=== PATIENT | male | born 1950 | race Caucasian/White ===

== ENCOUNTER → 2018-01-22 | Day surgery (SDC) | payer MEDICARE, OTHER ==
[~2018-01-22] MED LIST: Lactated Ringers 1,000 ML IV SCH; Propofol 200 MG/20 ML SDV IV ONE
[2018-01-22 09:48] VITALS: BP 132/82
--- NOTE | 2018-01-25 09:12 | OR ---
DATE OF OPERATION: 01/22/2018 PREOPERATIVE DIAGNOSIS: SCREENING COLONOSCOPY. POSTOPERATIVE DIAGNOSIS: SCREENING COLONOSCOPY. SURGEON: Varun Schroeder MD PROCEDURE: FULL-LENGTH COLONOSCOPY. ANESTHESIA: TRAUMA PROGRAM MANAGER. COMPLICATIONS: None. SPECIMEN: None. FINDINGS: Normal full-length colonoscopy. RECOMMENDATIONS: Routine colonoscopy every 10 years. INDICATIONS: Mr. Boone is a very pleasant 67-year-old, well known to me, who came in for routine Medicare physical. He is due for a screening colonoscopy. DESCRIPTION OF PROCEDURE: The patient was prepped and draped, placed in the left lateral decubitus position. A lubricated Olympus colonoscope was inserted and easily advanced to the cecum. Direct visualization of the ileocecal valve and appendiceal orifice was accomplished. The bowel prep was fine. Upon withdrawal of the scope, cecum, ascending, and transverse colon were completely benign. Throughout the entire left colon, I could find no signs of any polyps, mass, ulceration, or bleeding sites. No vascular abnormalities or signs of colitis. The rectal vault was unremarkable. Retroflexion of scope in the rectum was benign. Air was suctioned. Scope was removed without complication. The patient is stable in recovery room. BRADFORD/MANA /[id number]
== END ==
LOC: CC.SDS 07:50
PROVIDERS: ATTEND Family Medicine
DX: Z12.11 Encounter for screening for malignant neoplasm of colon (principal); I10 Essential (primary) hypertension; M10.9 Gout, unspecified; E11.9 Type 2 diabetes mellitus without complications; E78.5 Hyperlipidemia, unspecified; N40.0 Benign prostatic hyperplasia without lower urinary tract symptoms; Z79.899 Other long term (current) drug therapy
CPT/HCPCS: 82962; J2704; J7120

== ENCOUNTER → 2019-03-22 | Day surgery (SDC) | payer MEDICARE, OTHER ==
[~2019-03-22] MED LIST changes: -Lactated Ringers 1,000 ML IV SCH; +Lidocaine 1% 20 ML MDV ONE; -Propofol 200 MG/20 ML SDV IV ONE
[2019-03-22 08:56] VITALS: BP 155/62; PULSE 60
== END ==
LOC: CC.SDS 07:53
PROVIDERS: ATTEND Family Medicine
DX: I83.812 Varicose veins of left lower extremity with pain (principal)
CPT/HCPCS: 36475; A4216

== ENCOUNTER → 2019-03-29 | Day surgery (SDC) | payer MEDICARE, OTHER ==
[2019-03-29 09:45] VITALS: BP 155/68; PULSE 65
== END ==
LOC: CC.SDS 08:07
PROVIDERS: ATTEND Family Medicine
DX: I83.11 Varicose veins of right lower extremity with inflammation (principal); I83.811 Varicose veins of right lower extremity with pain

== ENCOUNTER 2019-12-01 11:30 | Inpatient (IN) | payer MEDICARE, OTHER ==
[2019-12-01] MEDS ORDERED: NS + KCl 20mEq/L 1,000 ML IV ONE (12:00)
[2019-12-01 12:07] LABS: CHLORIDE,CL 103 mEq/L (98-106); SODIUM,NA 138 mEq/L (136-145)
[2019-12-01] MEDS ORDERED: Ondansetron 4 MG Tab.DIS PO PRN (12:57)
[2019-12-01] MEDS ORDERED: Ondansetron 4 MG/2 ML SDV IV PRN (12:57)
[2019-12-01] MEDS ORDERED: Temazepam 15 MG Cap PO PRN (12:57)
[2019-12-01] MEDS ORDERED: Acetaminophen 325 MG Tab PO PRN (12:57)
[2019-12-01] MEDS ORDERED: Sodium Chloride 0.9% 10 ML Syringe FLUSH PRN (12:57)
[2019-12-01] MEDS ORDERED: Enoxaparin 30 MG/0.3 ML Syringe SUBCUT SCH (13:00)
[2019-12-01] MEDS ORDERED: NS + KCl 20mEq/L 1,000 ML IV SCH ×2 (15:30→16:00)
[2019-12-01] MEDS: Insulin Lispro 100 Units/ML 3 ML Vial SUBCUT SCH ×2 (17:19→20:34)
[2019-12-02] MEDS: Sodium Chloride 0.9% 1,000 ML IV SCH ×3 (01:02→20:18)
[2019-12-02] MEDS: Enoxaparin 30 MG/0.3 ML Syringe SUBCUT SCH (07:31)
[2019-12-02] MEDS: Insulin Lispro 100 Units/ML 3 ML Vial SUBCUT SCH ×4 (07:35→20:21)
--- NOTE | 2019-12-02 10:26 | PN ---
DATE: 12/02/2019 S: Ben is an interesting 68-year-old, who about a month ago was started on Ozempic. He was also having an CASPER-induced cough, so we switched him off his 20 mg of lisinopril and put him on Cozaar. He did fine for about 3 weeks, when all of a sudden, he started having persistent diarrhea. About a week after this started, we saw him in the clinic, stopped his Ozempic, which we felt was the culprit for his diarrhea and crampy abdominal pains. At that time, he declined any further workup, said he felt fine other than the fact that his stools were loose. Over the next 3 or 4 days when he was not improving, routine lab showed his creatinine to be up slightly around 1.7 from a baseline of about 1.4. We ordered stool studies, and those ultimately came back negative on the date of his admission. He presented on the day of his admission just feeling like he was getting worse and more weak. He came in with a creatinine of 3.8 and was hypomagnesemic and hypokalemic. He was admitted for acute kidney injury and dehydration with multiple electrolyte abnormalities. When he presented, he was slightly hypotensive with pressures in the 90s. He has been up since then in the 110s to 140s. He has not had any temps. His pulse has been regular and in the 70s. It took about 2 L of fluid to get him started having urine output. This morning, he has been voiding fine. He denies any real concerns other than the fact that he continues to have diarrhea. O: GENERAL: His physical exam shows him to be pleasant and cooperative. NECK: Veins are flat. LUNGS: His lungs are clear. CARDIAC: Tones are regular. ABDOMEN: Obese, soft. Really has no tenderness, just feels bloated. He has good bowel sounds. EXTREMITIES: No peripheral edema seen. LABORATORY DATA: White count today is down from 14 to 8. His hemoglobin is 12.2; 15.5 on admit, likely dilutional. He has a high eosinophilia count. His potassium is up from 3.3 to 3.7; renal function has improved from 3.8 on admit to 2.5 now; and magnesium is still low at 1.6. ASSESSMENT: 1. PERSISTENT DIARRHEA WITH POOR INTAKE AND SUBSEQUENT DEHYDRATION. 2. ACUTE KIDNEY INJURY SECONDARY TO PRERENAL AZOTEMIA. 3. HYPOKALEMIA. 4. HYPOMAGNESEMIA. 5. TYPE 2 DIABETES. 6. HYPERTENSION. P: The patient did not have accurate I and O's last night. Nursing will start collecting accurate I and O's. We will continue to give low-rate IV fluids at 100 per hour today and monitor his progress. He did have a renal ultrasound yesterday which showed no gross abnormalities. No obstructive uropathy seen. Bladder was empty during his ultrasound. At this time, continue to hold his antihypertensive in the form of his Cozaar as well as his metformin and Ozempic. He is getting sliding scale insulin. We will monitor his renal functions closely in the next 24 to 48 hours. BRADFORD/MANA /[id number]
[2019-12-02] MEDS: Potassium Chloride 10 MEQ Tab.ER PO SCH (11:43)
[2019-12-02] MEDS ORDERED: Magnesium Sulfate/D5W 1 GM/100 ML BAG ONE (12:33)
[2019-12-03] MEDS: Sodium Chloride 0.9% 1,000 ML IV SCH ×4 (06:04→20:19)
[2019-12-03] MEDS: Enoxaparin 30 MG/0.3 ML Syringe SUBCUT SCH (07:35)
[2019-12-03] MEDS: Potassium Chloride 10 MEQ Tab.ER PO SCH (07:35)
[2019-12-03] MEDS: Insulin Lispro 100 Units/ML 3 ML Vial SUBCUT SCH ×4 (08:33→21:39)
--- NOTE | 2019-12-03 14:37 | PCM.PN ---
- General Info Date of Service: 12/03/19 Functional Status: Reports: Pain Controlled, Tolerating Diet, Ambulating, Urinating - Review of Systems General: Reports: No Symptoms HEENT: Reports: No Symptoms Pulmonary: Reports: No Symptoms Cardiovascular: Reports: No Symptoms Gastrointestinal: Reports: No Symptoms Genitourinary: Reports: No Symptoms Musculoskeletal: Reports: No Symptoms Skin: Reports: No Symptoms Neurological: Reports: No Symptoms Psychiatric: Reports: No Symptoms - Patient Data Vitals - Most Recent: Last Vital Signs Temp 97.5 F 12/03/19 12:00 Pulse 73 12/03/19 12:00 Resp 18 12/03/19 12:00 BP 157/58 H 12/03/19 12:00 Pulse Ox 100 12/03/19 12:00 Weight - Most Recent: 246 lb 14.4 oz I&O - Last 24 Hours: Intake & Output 12/02/19 12/03/19 12/03/19 22:59 06:59 14:59 Intake Total 1435 1477 153 Output Total 400 800 Balance 1035 677 153 Lab Results Last 24 Hours: Laboratory Results - last 24 hr 12/02/19 12/02/19 12/03/19 Range/Units 17:05 20:20 07:00 Sodium 141 (136-145) mEq/L Potassium 3.8 (3.5-5.0) mEq/L Chloride 112 H (98-106) mEq/L Carbon Dioxide 18 L (21-32) mmol/L BUN 32 H (7-18) mg/dL Creatinine 1.8 H (0.7-1.3) mg/dL Est Cr Clr Drug Dosing 41.12 mL/min Estimated GFR (MDRD) 38 L (>=60) mL/min Glucose 129 H (75-99) mg/dL POC Glucose 114 H 166 H (75-105) mg/dl Calcium 7.9 L (8.4-10.1) mg/dL Magnesium 1.7 L (1.8-2.4) mg/dL 12/03/19 Range/Units 12:05 Sodium (136-145) mEq/L Potassium (3.5-5.0) mEq/L Chloride (98-106) mEq/L Carbon Dioxide (21-32) mmol/L BUN (7-18) mg/dL Creatinine (0.7-1.3) mg/dL Est Cr Clr Drug Dosing mL/min Estimated GFR (MDRD) (>=60) mL/min Glucose (75-99) mg/dL POC Glucose 167 H (75-105) mg/dl Calcium (8.4-10.1) mg/dL Magnesium (1.8-2.4) mg/dL Med Orders - Current: Current Medications Acetaminophen (Tylenol) 650 mg PO Q4H PRN PRN Reason: Pain (Mild 1-3)/fever Enoxaparin Sodium (Lovenox) 30 mg SUBCUT Q24H [facility] Last Admin: 12/03/19 07:35 Dose: 30 mg Sodium Chloride (Normal Saline) 1,000 mls @ 100 mls/hr IV ASDIRECTED [facility] Last Admin: 12/03/19 07:36 Dose: 100 mls/hr Insulin Human Lispro (Humalog) 0 unit SUBCUT WITHMEALSANDBED [facility]; Protocol Last Admin: 12/03/19 14:16 Dose: Not Given Magnesium Oxide (Magnesium Oxide) 250 mg PO BIDM [facility] Ondansetron HCl (Zofran Odt) 4 mg PO Q4H PRN PRN Reason: nausea, able to take PO Ondansetron HCl (Zofran) 4 mg IV Q4H PRN PRN Reason: Nausea/Vomiting Last Admin: 12/03/19 00:15 Dose: 4 mg Potassium Chloride (Klor-Con 10) 20 meq PO DAILY [facility] Last Admin: 12/03/19 07:35 Dose: 20 meq Sodium Chloride (Saline Flush) 10 ml FLUSH ASDIRECTED PRN PRN Reason: Keep Vein Open Temazepam (Restoril) 15 mg PO BEDTIME PRN PRN Reason: Sleep Discontinued Medications Enoxaparin Sodium (Lovenox) 30 mg SUBCUT Q24H [facility] Last Admin: 12/01/19 13:28 Dose: 30 mg Potassium Chloride/Sodium Chloride (Normal Saline With 20 Meq Kcl) 1,000 mls @ 250 mls/hr IV ONETIME ONE Stop: 12/01/19 15:59 Last Admin: 12/01/19 12:30 Dose: 250 mls/hr Magnesium Sulfate/Dextrose 1 (gm/ Premix) 100 mls @ 100 mls/hr IV Q1H [facility] Stop: 12/01/19 15:29 Last Admin: 05/28/20 14:40 Dose: 100 mls/hr Potassium Chloride/Sodium Chloride (Normal Saline With 20 Meq Kcl) 1,000 mls @ 150 mls/hr IV ASDIRECTED [facility] Potassium Chloride/Sodium Chloride (Normal Saline With 20 Meq Kcl) 1,000 mls @ 150 mls/hr IV ASDIRECTED [facility] Last Admin: 12/01/19 17:05 Dose: 150 mls/hr Magnesium Sulfate/Dextrose 1 (gm/ Premix) 100 mls @ 100 mls/hr IV Q1H [facility] Stop: 12/02/19 13:29 Last Admin: 12/02/19 12:50 Dose: 100 mls/hr Magnesium Sulfate/Dextrose (Magnesium Sulfate In D5w 100 Premix) Confirm Administered Dose 1 gm in 100 mls @ as directed .ROUTE .[facility] Stop: 12/02/19 12:34 Last Admin: 12/02/19 12:49 Dose: Not Given - Exam General: Alert, Oriented, Cooperative, No Acute Distress Neck: Supple, Trachea Midline, No JVD Lungs: Clear to Auscultation, Normal Respiratory Effort Cardiovascular: Regular Rate, Regular Rhythm, No Murmurs GI/Abdominal Exam: Soft, Non-Tender Back Exam: Normal Inspection Extremities: Normal Inspection, Normal Range of Motion, Non-Tender, No Pedal Edema, Normal Capillary Refill Peripheral Pulses: 2+: Radial (L), Radial (R), Posterior Tibial (L), Posterior Tibial (R), Dorsalis Pedis (L), Dorsalis Pedis (R) Skin: Warm, Dry, Intact Psy/Mental Status: Alert, Normal Affect, Normal Mood Sepsis Event Note - Evaluation Sepsis Screening Result: No Definite Risk - Focused Exam Vital Signs: Vital Signs Temp Pulse Resp BP Pulse Ox 12/03/19 12:00 97.5 F 73 18 157/58 H 100 12/03/19 07:43 98.0 F 16 149/77 H 100 12/03/19 05:00 97.5 F 78 18 175/82 H 97 12/03/19 04:00 83 Date Exam was Performed: 12/03/19 Time Exam was Performed: 15:14 - Problem List Review Problem List Initiated/Reviewed/Updated: Yes - My Orders Last 24 Hours: My Active Orders 12/03/19 17:30 Magnesium Oxide 250 mg PO BIDM 12/04/19 05:00 BASIC METABOLIC PANEL,BMP [CHEM] DAILY CBC WITH AUTO DIFF [HEME] DAILY MAGNESIUM [CHEM] Routine 12/05/19 05:00 BASIC METABOLIC PANEL,BMP [CHEM] DAILY CBC WITH AUTO DIFF [HEME] DAILY - Plan Plan:: 12/03/2019 0830 This patient was admitted for elevated CR lab possible due to diabetes medication. Patient reports that last night that he did have some nausea after he had eaten, but after about midnight, he was feeling better. He attributes this to the dinner he ate. Patient reports this morning though, he is feeling much better. He reports being able to get up and walk, shower, and feeling good. He does report that he feels like he has the energy to go home. I reviewed the patient labs. Patient labs yesterday were CR 2.5, calcium 7.7, magnesium 1.6. Patient has received fluids and IV magnesium. Patient labs today are CR 1.8, CA 7.9, Magnesium 1.7. The plan will be to keep the patient in the hospital one more day, start patient on PO magnesium. Will continue the fluids for his CR elevation. Plan to discharge home tomorrow, on Metformin and discontinue his BP medication.
[2019-12-04] MEDS: Enoxaparin 30 MG/0.3 ML Syringe SUBCUT SCH (07:27)
[2019-12-04] MEDS: Potassium Chloride 10 MEQ Tab.ER PO SCH (07:27)
[2019-12-04 07:55] VITALS: BP 156/66; PULSE 68
[2019-12-04] MEDS: Insulin Lispro 100 Units/ML 3 ML Vial SUBCUT SCH ×2 (07:58→14:18)
--- NOTE | 2019-12-04 14:15 | PCM.DCSUM1 ---
Discharge Summary - Hospital Course HPI Initial Comments: 12/04/2019 1000am This patient today reports that he is feeling great. He has been up and walking , showering, no complaints. The patient reports he is ready to go home. The patient labs today are much improved with his CR. His CR today is 1.5. Today, his Mg is 1.5, I believe this is due to the fluids he was getting and may have diluted this mg serum. I ordered 2g IV Mg, started PO Mg. The redraw now at 2pm is now 2.0. The patient reports he is ready to go home. I will restart patient metformin, and continue home Mg PO. I will discharge this patient home. Recommend the patient be seen by PCP this week for recheck. - Discharge Data Discharge Date: 12/04/19 Discharge Disposition: Home, Self-Care 01 Condition: Good - Referral to Home Health Primary Care Physician: Varun Schroeder MD - Patient Instructions Diet: Usual Diet as Tolerated Activity: As Tolerated Driving: May Drive Today Showering/Bathing: May Shower Notify Provider of: Fever, Nausea and/or Vomiting Other/Special Instructions: Followup with Dr. Schroeder this week for recheck. Magnesium prescription sent to pharmacy. Return to the ER for worsening of condition or any emergent concerns - Discharge Plan *PRESCRIPTION DRUG MONITORING PROGRAM REVIEWED*: Not Applicable *COPY OF PRESCRIPTION DRUG MONITORING REPORT IN PATIENT JOSE M: Not Applicable Prescriptions/Med Rec: Magnesium Oxide 250 mg PO BIDM #20 tablet Home Medications: Home Meds Aspirin [Halfprin] 81 mg PO DAILY 03/27/14 [History] Potassium Chloride 10 meq PO DAILY 03/27/14 [History] Rosuvastatin [Crestor] 10 mg PO DAILY 03/12/18 [History] Sildenafil [Viagra] 50 - 100 mg PO DAILY PRN 03/22/19 [History] allopurinoL [Zyloprim] 150 mg PO DAILY 03/22/19 [History] metFORMIN [Glucophage XR] 1,000 mg PO BID 03/22/19 [History] Magnesium Oxide 250 mg PO BIDM #20 tablet 12/04/19 [Rx] Patient Handouts: Acute Kidney Injury, Adult, Hypomagnesemia - Discharge Summary/Plan Comment DC Time >30 min.: No - General Info Functional Status: Reports: Pain Controlled, Tolerating Diet, Ambulating, Urinating - Review of Systems General: Reports: No Symptoms HEENT: Reports: No Symptoms Pulmonary: Reports: No Symptoms Cardiovascular: Reports: No Symptoms Gastrointestinal: Reports: No Symptoms Genitourinary: Reports: No Symptoms Musculoskeletal: Reports: No Symptoms Skin: Reports: No Symptoms Neurological: Reports: No Symptoms Psychiatric: Reports: No Symptoms - Patient Data Vitals - Most Recent: Last Vital Signs Temp 97.7 F 12/04/19 07:55 Pulse 68 12/04/19 07:55 Resp 18 12/04/19 07:55 BP 156/66 H 12/04/19 07:55 Pulse Ox 99 12/04/19 07:55 Weight - Most Recent: 246 lb 14.4 oz I&O - Last 24 hours: Intake & Output 12/03/19 12/04/19 12/04/19 22:59 06:59 14:59 Intake Total 2907 480 Output Total 1600 1200 450 Balance 3822 -541 -110 Lab Results - Last 24 hrs: Laboratory Results - last 24 hr 12/03/19 12/03/19 12/04/19 Range/Units 17:17 21:28 07:00 WBC 6.9 (5.0-10.0) 10^3/uL RBC 3.51 L (4.50-6.00) 10^6/uL Hgb 11.2 L (14.0-18.0) g/dL Hct 33.2 L (40.0-54.0) % MCV 94.6 H (82.0-94.0) fL MCH 31.9 (27.0-32.0) pg MCHC 33.7 (33.0-38.0) g/dL RDW Coeff of Joy 14.6 (11.0-15.0) % Plt Count 134 L (150-400) 10^3/uL Add Manual Diff Yes Neutrophils % (Manual) 48 (35-85) % Lymphocytes % (Manual) 19 L (21-55) % Monocytes % (Manual) 5 (2-12) % Eosinophils % (Manual) 28 H (0-5) % Absolute Neutrophils 3.31 (1.80-7.00) 10^3/uL Lymphocytes # (Manual) 1.31 (1.00-4.80) 10^3/uL Monocytes # (Manual) 0.35 (0.00-0.80) 10^3/uL Eosinophils # (Manual) 1.93 H (0.00-0.45) 10^3/uL Platelet Estimate Adequate (ADEQUATE) Sodium (136-145) mEq/L Potassium (3.5-5.0) mEq/L Chloride (98-106) mEq/L Carbon Dioxide (21-32) mmol/L BUN (7-18) mg/dL Creatinine (0.7-1.3) mg/dL Est Cr Clr Drug Dosing mL/min Estimated GFR (MDRD) (>=60) mL/min Glucose (75-99) mg/dL POC Glucose 140 H 148 H (75-105) mg/dl Calcium (8.4-10.1) mg/dL Magnesium (1.8-2.4) mg/dL 12/04/19 12/04/19 12/04/19 Range/Units 07:00 11:36 13:40 WBC (5.0-10.0) 10^3/uL RBC (4.50-6.00) 10^6/uL Hgb (14.0-18.0) g/dL Hct (40.0-54.0) % MCV (82.0-94.0) fL MCH (27.0-32.0) pg MCHC (33.0-38.0) g/dL RDW Coeff of Joy (11.0-15.0) % Plt Count (150-400) 10^3/uL Add Manual Diff Neutrophils % (Manual) (35-85) % Lymphocytes % (Manual) (21-55) % Monocytes % (Manual) (2-12) % Eosinophils % (Manual) (0-5) % Absolute Neutrophils (1.80-7.00) 10^3/uL Lymphocytes # (Manual) (1.00-4.80) 10^3/uL Monocytes # (Manual) (0.00-0.80) 10^3/uL Eosinophils # (Manual) (0.00-0.45) 10^3/uL Platelet Estimate (ADEQUATE) Sodium 145 (136-145) mEq/L Potassium 4.1 (3.5-5.0) mEq/L Chloride 115 H (98-106) mEq/L Carbon Dioxide 18 L (21-32) mmol/L BUN 23 H (7-18) mg/dL Creatinine 1.5 H (0.7-1.3) mg/dL Est Cr Clr Drug Dosing 49.34 mL/min Estimated GFR (MDRD) 47 L (>=60) mL/min Glucose 123 H (75-99) mg/dL POC Glucose 140 H (75-105) mg/dl Calcium 7.9 L (8.4-10.1) mg/dL Magnesium 1.5 L 2.0 (1.8-2.4) mg/dL Med Orders - Current: Current Medications Acetaminophen (Tylenol) 650 mg PO Q4H PRN PRN Reason: Pain (Mild 1-3)/fever Enoxaparin Sodium (Lovenox) 30 mg SUBCUT Q24H [facility] Last Admin: 12/04/19 07:27 Dose: 30 mg Insulin Human Lispro (Humalog) 0 unit SUBCUT WITHMEALSANDBED [facility]; Protocol Last Admin: 12/04/19 07:58 Dose: Not Given Magnesium Oxide (Magnesium Oxide) 250 mg PO BIDM [facility] Last Admin: 12/04/19 07:27 Dose: 250 mg Ondansetron HCl (Zofran Odt) 4 mg PO Q4H PRN PRN Reason: nausea, able to take PO Ondansetron HCl (Zofran) 4 mg IV Q4H PRN PRN Reason: Nausea/Vomiting Last Admin: 12/03/19 00:15 Dose: 4 mg Potassium Chloride (Klor-Con 10) 20 meq PO DAILY [facility] Last Admin: 12/04/19 07:27 Dose: 20 meq Sodium Chloride (Saline Flush) 10 ml FLUSH ASDIRECTED PRN PRN Reason: Keep Vein Open Temazepam (Restoril) 15 mg PO BEDTIME PRN PRN Reason: Sleep Discontinued Medications Enoxaparin Sodium (Lovenox) 30 mg SUBCUT Q24H [facility] Last Admin: 12/01/19 13:28 Dose: 30 mg Potassium Chloride/Sodium Chloride (Normal Saline With 20 Meq Kcl) 1,000 mls @ 250 mls/hr IV ONETIME ONE Stop: 12/01/19 15:59 Last Admin: 12/01/19 12:30 Dose: 250 mls/hr Magnesium Sulfate/Dextrose 1 (gm/ Premix) 100 mls @ 100 mls/hr IV Q1H [facility] Stop: 12/01/19 15:29 Last Admin: 12/01/19 14:40 Dose: 100 mls/hr Potassium Chloride/Sodium Chloride (Normal Saline With 20 Meq Kcl) 1,000 mls @ 150 mls/hr IV ASDIRECTED [facility] Potassium Chloride/Sodium Chloride (Normal Saline With 20 Meq Kcl) 1,000 mls @ 150 mls/hr IV ASDIRECTED [facility] Last Admin: 12/01/19 17:05 Dose: 150 mls/hr Sodium Chloride (Normal Saline) 1,000 mls @ 100 mls/hr IV ASDIRECTED [facility] Last Admin: 12/03/19 20:19 Dose: 100 mls/hr Magnesium Sulfate/Dextrose 1 (gm/ Premix) 100 mls @ 100 mls/hr IV Q1H [facility] Stop: 12/02/19 13:29 Last Admin: 12/02/19 12:50 Dose: 100 mls/hr Magnesium Sulfate/Dextrose (Magnesium Sulfate In D5w 100 Premix) Confirm Administered Dose 1 gm in 100 mls @ as directed .ROUTE .[facility] Stop: 12/02/19 12:34 Last Admin: 12/02/19 12:49 Dose: Not Given Magnesium Sulfate/Dextrose 1 (gm/ Premix) 100 mls @ 100 mls/hr IV ONETIME ONE Stop: 12/04/19 10:48 Last Admin: 12/04/19 10:13 Dose: 100 mls/hr Magnesium Sulfate/Dextrose 1 (gm/ Premix) 100 mls @ 100 mls/hr IV ONETIME ONE Stop: 12/04/19 10:48 Last Admin: 12/04/19 11:23 Dose: 100 mls/hr - Exam General: Reports: Alert, Oriented, Cooperative, No Acute Distress Neck: Reports: Supple, Trachea Midline, No JVD Lungs: Reports: Clear to Auscultation, Normal Respiratory Effort Cardiovascular: Reports: Regular Rate, Regular Rhythm, No Murmurs GI/Abdominal Exam: Soft, Non-Tender Back Exam: Reports: Normal Inspection Extremities: Normal Inspection, Normal Range of Motion, Non-Tender, No Pedal Edema, Normal Capillary Refill Skin: Reports: Warm, Dry, Intact Neurological: Reports: No New Focal Deficit Psy/Mental Status: Reports: Alert, Normal Affect, Normal Mood
[2019-12-04] MEDS ORDERED: Ondansetron 4 MG Tab.DIS PO ONE (14:39)
[2019-12-04] MEDS ORDERED: Ondansetron 4 MG Tab.DIS PO PRN (16:56)
== END 2019-12-04 15:29 | disposition home or self-care (01) | DRG 684 ==
LOC: CC.MS 11:30 → CC.FCMC 11:30 → UNDOADMIN 12:47 → CC.MS 12:47
PROVIDERS: ADMIT Physician Assistant Medical; ATTEND Family Medicine
DX: N17.0 Acute kidney failure with tubular necrosis (principal); E87.6 Hypokalemia; E83.42 Hypomagnesemia; E11.9 Type 2 diabetes mellitus without complications; I10 Essential (primary) hypertension; E86.0 Dehydration; I95.9 Hypotension, unspecified; Z79.82 Long term (current) use of aspirin; Z79.84 Long term (current) use of oral hypoglycemic drugs
CPT/HCPCS: 36415; 76770; 80048; 80053; 81001; 82150; 82565; 82962; 83735; 85025; 86140; A9270-GY; J1650; J2405; J3475; J3480; J7030

== ENCOUNTER → 2023-05-08 | Day surgery (SDC) | payer MEDICARE, OTHER ==
[~2023-05-08] MED LIST changes: +50% Dextrose in Water 50 ML Syringe IVPUSH ONE; +Ketamine 200 MG/20 ML MDV ONE; +Lactated Ringers 1,000 ML IV SCH; -Lidocaine 1% 20 ML MDV ONE; +Phenylephrine 1% 10 MG/ML SDV ONE; +Propofol 200 MG/20 ML SDV ONE; +fentaNYL 50 MCG/ML SDV ONE
[2023-05-08 09:24] VITALS: BP 123/56; PULSE 53
== END ==
LOC: CC.SDS 07:19
PROVIDERS: ATTEND Family Medicine
DX: D12.2 Benign neoplasm of ascending colon (principal); K64.8 Other hemorrhoids; N40.0 Benign prostatic hyperplasia without lower urinary tract symptoms; I25.10 Atherosclerotic heart disease of native coronary artery without angina pectoris; M10.9 Gout, unspecified; I10 Essential (primary) hypertension; E78.5 Hyperlipidemia, unspecified; E11.9 Type 2 diabetes mellitus without complications; Z79.4 Long term (current) use of insulin; Z79.84 Long term (current) use of oral hypoglycemic drugs; Z79.899 Other long term (current) drug therapy
CPT/HCPCS: 00811; 45385; 99100; J2371; J2704; J3010; J3490; J7120